=== PATIENT | female | born 1985 | race Caucasian/White ===

== ENCOUNTER 2020-08-15 11:22 | Emergency (ER) | payer OTHER ==
[2020-08-15 11:46] VITALS: BP 97/62; PULSE 89; TEMP 97.8; BMI 24.3
[2020-08-15] MEDS ORDERED: IBUPROFEN 400 MG TABLET (FP) PO ONE (12:26)
== END 2020-08-15 13:58 | disposition home or self-care (01) ==
LOC: JER 11:22
DX: U07.1 COVID-19 (principal); R51.9 Headache, unspecified
CPT/HCPCS: 84703; 99283-25; C9803; U0003

== ENCOUNTER 2023-10-11 10:16 | Emergency (ER) | payer OTHER ==
[2023-10-11] MEDS ORDERED: ACETAMINOPHEN 500 MG TABLET (FP) PO ONE (10:47)
[2023-10-11 11:04] VITALS: BP 98/66; PULSE 92; RESP 18; TEMP 98.9; BMI 27.4
[2023-10-11] MEDS ORDERED: ACETAMINOPHEN 325 MG TABLET (FP) ONE (11:07)
== END 2023-10-11 11:15 | disposition home or self-care (01) ==
LOC: FER 10:16
DX: R50.9 Fever, unspecified (principal); J02.9 Acute pharyngitis, unspecified; R51.9 Headache, unspecified; R53.83 Other fatigue; Z20.822 Contact with and (suspected) exposure to COVID-19
CPT/HCPCS: 0241U-QW; 87651; 99283-25

== ENCOUNTER 2024-07-31 13:03 | Emergency (ER) | payer OTHER ==
[2024-07-31 13:14] VITALS: BP 114/71; PULSE 75; RESP 18; TEMP 98; BMI 27.9
[2024-07-31] MEDS ORDERED: LIDOCAINE 4% PATCH TP ONE (13:44)
[2024-07-31] MEDS ORDERED: IBUPROFEN 600 MG TABLET (FP) PO ONE (13:44)
[2024-07-31] MEDS: LIDOCAINE 5% TOPICAL PATCH TP ONE (13:49)
[2024-07-31] MEDS: IBUPROFEN 600 MG TABLET (FP) PO ONE (13:49)
== END 2024-07-31 15:31 | disposition home or self-care (01) ==
LOC: JERFT 13:03
DX: M54.50 Low back pain, unspecified (principal); M25.572 Pain in left ankle and joints of left foot; V79.40XA Driver of bus injured in collision with unspecified motor vehicles in traffic accident, initial encounter
CPT/HCPCS: 73610-TC-LT-FY; 73630-TC-LT; 99283-25

== ENCOUNTER 2024-09-26 10:18 | Inpatient (IN) | payer OTHER ==
[2024-09-26] MEDS ORDERED: ACETAMINOPHEN INJECTION 100 ML ONE (12:10)
[2024-09-26] MEDS ORDERED: METOCLOPRAMIDE HCL INJECTION 10 MG/2 ML VIAL ONE (12:10)
[2024-09-26] MEDS: ACETAMINOPHEN 500 MG TABLET (FP) PO ONE (12:37)
[2024-09-26] MEDS: SODIUM CHLORIDE 0.9% 500 ML INFUS.BAG IV ONE ×2 (12:37→17:02)
[2024-09-26] MEDS: METOCLOPRAMIDE HCL INJECTION 10 MG/2 ML VIAL IVPB ONE (12:37)
[2024-09-26 12:54] LABS: HEMATOCRIT 39.1 % (32.4-45.2); HEMOGLOBIN 12.9 GM/dL (10.7-15.3); MCH 27.8 pg (25.7-33.7); MCHC 33.1 g/dl (32.0-36.0); MEAN CELL VOLUME 83.8 fl (80-96); PLATELET COUNT 271 10^3/uL (134-434); RBC 4.66 M/mm3 (3.60-5.2); RDW 13.3 % (11.6-15.6); WHITE BLOOD COUNT 15.2 K/mm3 (4.0-10.0)
[2024-09-26 12:58] LABS: HCG,QUALITATIVE URINE Positive
[2024-09-26 13:00] LABS: EPI CELLS 8 /uL (0-25.1); HYALINE CASTS 4 /uL (0-3.1); PH,URINE 5.5 (5.0-8.0); URINE APPEARANCE CLOUDY; URINE BACTERIA >9,000 /uL (0-1359); URINE BILIRUBIN NEGATIVE (NEGATIVE); URINE COLOR YELLOW; URINE GLUCOSE (UA) NEGATIVE (NEGATIVE); URINE KETONE 3+ (NEGATIVE); URINE LEUK ESTERASE 2+ (NEGATIVE); URINE NITRITE POSITIVE (NEGATIVE); URINE PROTEIN 2+ (NEGATIVE); URINE RBC 58 /uL (0-23.9); URINE WBC 608 /uL (0-25.8)
[2024-09-26 13:16] LABS: POTASSIUM 3.6 mmol/L (3.5-5.1)
[2024-09-26 13:18] LABS: ALBUMIN 3.6 g/dl (3.4-5.0); BLOOD UREA NITROGEN 7.8 mg/dL (7-18)
[2024-09-26 13:20] LABS: CREATININE 0.6 mg/dL (0.55-1.3)
[2024-09-26 13:22] LABS: BILIRUBIN,TOTAL 0.9 mg/dL (0.2-1); TOT PROT 7.3 g/dl (6.4-8.2)
[2024-09-26] MEDS ORDERED: CEFTRIAXONE 1 G/50 ML PREMIX 50 ML IVPB ONE (13:48)
[2024-09-26] MEDS: CEFTRIAXONE 1,000 MG in DEXTROSE 5%-WATER - 50 ML IVPB ONE (13:51)
[2024-09-26 14:11] LABS: HIV INTERPRETATION NEGATIVE (NEGATIVE)
[2024-09-26 16:39] LABS: HEMATOCRIT 39.1 % (32.4-45.2); HEMOGLOBIN 13.3 GM/dL (10.7-15.3); MCH 28.3 pg (25.7-33.7); MCHC 33.9 g/dl (32.0-36.0); MEAN CELL VOLUME 83.5 fl (80-96); MEAN PLT VOLUME 9.6 fl (7.5-11.1); PLATELET COUNT 256 10^3/uL (134-434); RBC 4.68 M/mm3 (3.60-5.2); RDW 13.5 % (11.6-15.6); WHITE BLOOD COUNT 16.6 K/mm3 (4.0-10.0)
[2024-09-26 17:29] LABS: ANISOCYTOSIS 0; HELMET CELLS 0; HOWELL-JOLLY BODIES 0; MACROCYTOSIS 0; OVALOCYTE 0; ROULEAU 0; SICKELED CELLS 0; TARGET CELLS 0; TEAR DROP CELLS 0; TOXIC GRANULATION 0
[2024-09-26] MEDS: SODIUM CHLORIDE 1,000 ML IV STA (20:40)
[2024-09-26] MEDS: ACETAMINOPHEN 325 MG TABLET (FP) PO ONE (21:57)
[2024-09-26] MEDS ORDERED: ACETAMINOPHEN 1000 MG/100 ML BAG IVPB PRN (22:04)
[2024-09-26] MEDS ORDERED: ACETAMINOPHEN 1000 MG/100 ML BAG IVPB SCH (23:45)
[2024-09-27] MEDS: HYDROmorphone HCL CARPU-JECT 2 MG/1 ML DISP.SYRIN IVPB ONE (00:33)
[2024-09-27] MEDS: SODIUM CHLORIDE 1,000 ML IV SCH (01:51)
[2024-09-27] MEDS: ACETAMINOPHEN 1000 MG/100 ML BAG IVPB PRN (06:07)
[2024-09-27] MEDS: METOCLOPRAMIDE HCL INJECTION 10 MG/2 ML VIAL IVPB ONE (06:34)
[2024-09-27 08:32] LABS: BASO % 0.1 % (0-2.0); EOS % 0.1 % (0-4.5); HEMATOCRIT 30.5 % (32.4-45.2); HEMOGLOBIN 10.3 GM/dL (10.7-15.3); LYMPH % 3.5 % (8-40); MCH 28.1 pg (25.7-33.7); MCHC 33.7 g/dl (32.0-36.0); MEAN CELL VOLUME 83.4 fl (80-96); MEAN PLT VOLUME 9.6 fl (7.5-11.1); MONO % 7.7 % (3.8-10.2); NEUT % 88.6 % (42.8-82.8); PLATELET COUNT 199 10^3/uL (134-434); RBC 3.66 M/mm3 (3.60-5.2); RDW 13.3 % (11.6-15.6); WHITE BLOOD COUNT 12.4 K/mm3 (4.0-10.0)
[2024-09-27 08:38] LABS: POTASSIUM 3.3 mmol/L (3.5-5.1)
[2024-09-27 08:41] LABS: ALBUMIN 2.4 g/dl (3.4-5.0); BLOOD UREA NITROGEN 7.8 mg/dL (7-18); CALCIUM 7.5 mg/dL (8.5-10.1); MAGNESIUM 1.7 mg/dL (1.8-2.4)
[2024-09-27 08:44] LABS: CREATININE 0.6 mg/dL (0.55-1.3); PHOSPHOROUS 1.9 mg/dL (2.5-4.9)
[2024-09-27 08:45] LABS: BILIRUBIN,TOTAL 0.6 mg/dL (0.2-1)
[2024-09-27 08:49] LABS: TOT PROT 5.2 g/dl (6.4-8.2)
[2024-09-27] MEDS: CEFTRIAXONE 1 G/50 ML PREMIX 50 ML IVPB SCH (13:31)
[2024-09-27] MEDS: ENOXAPARIN NA (PORCINE) 40 MG/0.4 ML DISP.SYRIN SQ SCH (13:39)
[2024-09-27] MEDS ORDERED: METOCLOPRAMIDE HCL INJECTION 10 MG/2 ML VIAL IVPUSH PRN (14:20)
[2024-09-27] MEDS: POTASSIUM CHLORIDE TABS 10 MEQ TABLET.ER (FP) PO ONE (19:10)
[2024-09-27] MEDS: NAPH,MB-DB/K PH,MBDB POWDER PACKET PO ONE (19:10)
[2024-09-27] MEDS: MAGNESIUM OXIDE 400 MG TABLET (FP) PO ONE (19:10)
[2024-09-27] MEDS: ACETAMINOPHEN 1000 MG/100 ML BAG IVPB ONE (22:18)
[2024-09-28] MEDS: ACETAMINOPHEN 325 MG TABLET (FP) PO PRN (04:09)
[2024-09-28] MEDS: ACETAMINOPHEN 1000 MG/100 ML BAG IVPB ONE ×2 (12:08→20:06)
[2024-09-28] MEDS: PANTOPRAZOLE SODIUM 40 MG VIAL IVPUSH ONE (12:09)
[2024-09-28] MEDS: MAG HYDROX/AL HYDROX/SIMETH 30 ML UNIT-DOSE CUP PO ONE (12:10)
[2024-09-29 06:39] VITALS: RESP 18
[2024-09-29] MEDS: ACETAMINOPHEN 325 MG TABLET (FP) PO ONE (06:51)
[2024-09-29] MEDS ORDERED: ACETAMINOPHEN 325 MG TABLET (FP) PO PRN (09:31)
[2024-09-29 09:48] LABS: BASO % 0.2 % (0-2.0); EOS % 0.2 % (0-4.5); HEMATOCRIT 34.6 % (32.4-45.2); HEMOGLOBIN 11.6 GM/dL (10.7-15.3); MCH 27.7 pg (25.7-33.7); MCHC 33.4 g/dl (32.0-36.0); MEAN CELL VOLUME 82.9 fl (80-96); MEAN PLT VOLUME 9.1 fl (7.5-11.1); MONO % 9.4 % (3.8-10.2); NEUT % 79.2 % (42.8-82.8); PLATELET COUNT 330 10^3/uL (134-434); RBC 4.17 M/mm3 (3.60-5.2); RDW 14.4 % (11.6-15.6); WHITE BLOOD COUNT 10.7 K/mm3 (4.0-10.0)
[2024-09-29 10:13] LABS: POTASSIUM 3.3 mmol/L (3.5-5.1)
[2024-09-29 10:15] VITALS: TEMP 98.2
[2024-09-29 10:20] LABS: BLOOD UREA NITROGEN 3.5 mg/dL (7-18)
[2024-09-29 10:22] LABS: ALBUMIN 2.6 g/dl (3.4-5.0); BILIRUBIN,TOTAL 1.2 mg/dL (0.2-1); TOT PROT 6.1 g/dl (6.4-8.2)
[2024-09-29 10:23] LABS: CREATININE 0.6 mg/dL (0.55-1.3)
[2024-09-29] MEDS: PRENATAL VITAMINS W/ FOLIC ACID TABLET (FP) PO SCH (10:24)
[2024-09-29 10:27] LABS: CALCIUM 8.9 mg/dL (8.5-10.1)
[2024-09-29] MEDS: POTASSIUM CHLORIDE ORAL LIQUID 20 MEQ/15 ML PO ONE (13:06)
[2024-09-29 14:08] VITALS: BP 101/72; PULSE 87
== END 2024-09-29 15:10 | disposition home or self-care (01) | DRG 566 ==
LOC: JER 10:18 → JERFT 10:18 → JERBED 19:34 → J5S 20:04
PROVIDERS: ADMIT Internal Medicine
DX: O23.01 Infections of kidney in pregnancy, first trimester (principal); Z3A.01 Less than 8 weeks gestation of pregnancy; I10 Essential (primary) hypertension; B96.20 Unspecified Escherichia coli [E. coli] as the cause of diseases classified elsewhere; R00.0 Tachycardia, unspecified; R11.2 Nausea with vomiting, unspecified; N12 Tubulo-interstitial nephritis, not specified as acute or chronic; R51.9 Headache, unspecified; R10.13 Epigastric pain
CPT/HCPCS: 0241U-QW; 36415; 76775-TC; 76817-TC; 80053; 81003; 83605; 83735; 84100; 84702; 84703; 85025; 86803; 87086; 87186; 87389; 87491; 87591; 87661; 93005; 93010; 99285-25; J0131